=== PATIENT | male | born 1980 | race Caucasian/White ===

== ENCOUNTER 2019-12-31 10:27 | Day surgery (SDC) | payer BC ==
[~2019-12-31] VITALS: Ht 182.9 cm; Wt 0.6 kg
--- NOTE | ~2019-12-31 | O ---
[facility] [place] [address] OPERATIVE REPORT Name: JAYCEE BASS Room #: 150-4 [facility] M.R.#: [id number] Admission: 12/31/19 Attend Phys: Maame Keys, Discharge: Date of : 84 Report #: [id number] THIS REPORT FOR: cc: JACKELYN - Shantel family physician/PCP JACKELYN - Shantel family physician/PCP Maame Keys MD ~ CC: JACKELYN physician/PCP Maame Keys DATE OF SERVICE: 12/31/2019 PREOPERATIVE DIAGNOSIS: Right index finger possible retained body, possible abscess. POSTOPERATIVE DIAGNOSIS: Right index finger volar abscess with possible foreign body. PROCEDURE PERFORMED: Incision and debridement, right index finger skin and subcutaneous tissue. SURGEON: Dr. Maame Keys. ANESTHESIA: General mask anesthesia. ESTIMATED BLOOD LOSS: Minimal. TOURNIQUET TIME: 12 minutes. COMPLICATIONS: None. CONDITION: Stable. DISPOSITION: Recovery room. INDICATIONS: The patient is a 39-year-old male with the above-mentioned diagnosis. He elects for operative treatment. The risks, benefits, alternatives, and complications were discussed including but not limited to infection, damage to vessels or nerves, wound healing problems, and incomplete resolution of the infection necessitating more surgery, damage to blood vessels or nerves and stiffness. Informed consent was obtained. The correct extremity was identified and labeled by myself after verbal confirmation of the patient as well as visual confirmation and signed informed consent. DESCRIPTION OF PROCEDURE: The patient was brought back to the operating room and placed on the operating room table in the supine position. He received antibiotics after cultures were taken and the tourniquet was deflated. The [address] [address] OPERATIVE REPORT Name: JAYCEE BASS Room #: 150-4 [facility] M.R.#: [id number] Admission: 12/31/19 Attend Phys: Maame Keys, Discharge: Date of : 84 Report #: [id number] right upper extremity was sterilely prepped and draped in the usual fashion. Final timeout was taken to verify correct patient, operative procedure, operative site, all concurred. The entire procedure was done with the aid of 3.5 times loupe magnification. Next, the arm was elevated, exsanguinated proximal to the wrist and the tourniquet was inflated. Next, an oblique incision measuring approximately 1.5 cm was made centered over the volar puncture wound. A mosquito hemostat was placed into the wound and spread and immediate purulent fluid was obtained. The area was thoroughly debrided with a synovial rongeur and extensive search for a foreign body was undertaken. No definite foreign body was found. There was no purulent fluid in the flexor tendon sheath. The edges of the wound were compressed to search for any other areas of purulent fluid, none were found. The area was then thoroughly irrigated with a liter of antibiotic saline using a 20 mL syringe and a 14-gauge angiocatheter that was cut short. The wound was dressed with sterile gauze. He was placed in a bulky dressing. All fingers were pink with brisk capillary refill at the conclusion of case after deflation of tourniquet. All sponge and needle counts were correct. The patient was transferred to postoperative recovery room in stable condition. By: [id number] Maame Keys MD /nt
[~2019-12-31 10:27] MED LIST: NAPROSYN500 MG PO; TRAMADOL 50 MG50 MG PO
[2019-12-31 10:58] VITALS: BP 136/82
[2019-12-31 13:03] VITALS: BP 136/82
== END 2019-12-31 13:55 | disposition home or self-care (01) ==
LOC: TBA 10:27 → OR 10:27
DX: L02.511 Cutaneous abscess of right hand (principal); A49.01 Methicillin susceptible Staphylococcus aureus infection, unspecified site; F17.210 Nicotine dependence, cigarettes, uncomplicated; Z98.890 Other specified postprocedural states; Z79.899 Other long term (current) drug therapy
CPT/HCPCS: 50010; 50101; 50386; 57006; 57091; 57178; 62110; 62900; 70005